=== PATIENT | female | born 1975 | race African-American/Black ===

== ENCOUNTER 2019-05-24 19:34 | Emergency (ER) | payer MEDICAID, OTHER ==
[~2019-05-24] VITALS: Ht 167.6 cm; Wt 74.6 kg
[2019-05-24 19:42] VITALS: BP 131/91
[2019-05-24] MEDS ORDERED: KETOROLAC 30 MG/1 ML IM ONE (20:30)
[2019-05-24] MEDS ORDERED: KETOROLAC 30 MG/1 ML ONE (20:31)
== END 2019-05-24 21:55 | disposition home or self-care (01) ==
LOC: ED 21:30
DX: S39.012A Strain of muscle, fascia and tendon of lower back, initial encounter (principal); S20.219A Contusion of unspecified front wall of thorax, initial encounter; S60.221A Contusion of right hand, initial encounter; V49.49XA Driver injured in collision with other motor vehicles in traffic accident, initial encounter; Y93.89 Activity, other specified; Y92.89 Other specified places as the place of occurrence of the external cause; Y99.8 Other external cause status
CPT/HCPCS: 71046; 72110; 72125; 73130; 96372; 99284; J1885

== ENCOUNTER 2020-09-24 16:36 | Emergency (ER) | payer MEDICAID, OTHER ==
[~2020-09-24] VITALS: Ht 167.6 cm; Wt 77.2 kg
--- NOTE | 2020-09-24 19:44 | NUR ---
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
[2020-09-24 20:04] LABS: BASOPHILS % (AUTO) 0 % (0-1); EOSINOPHILS % (AUTO) 2 % (1-7); LYMPHOCYTES % (AUTO) 23 % (22-44); MEAN CORPUSCULAR HEMOGLOBIN 32.9 pg (27.0-34.8); MEAN CORPUSCULAR HGB CONC 34.2 g/dL (32.4-35.8); MEAN PLATELET VOLUME 8.6 fL (7.4-10.4); MONOCYTES % (AUTO) 6 % (2-9); NEUTROPHILS % (AUTO) 68 % (42-75); PLATELET COUNT 214 x10^3/uL (130-400); RED BLOOD COUNT 4.14 x10^6/uL (3.82-5.3); RED CELL DISTRIBUTION WIDTH 13.7 % (9.6-15.2)
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
[2020-09-24 20:15] LABS: ANION GAP 3 mmol/L (5-15); CALCIUM 8.3 mg/dL (8.5-10.1); CHLORIDE 109 mmol/L (98-107); CREATININE 0.92 mg/dL (0.55-1.02)
[2020-09-24] MEDS ORDERED: KETOROLAC 30 MG/1 ML IM ONE (20:30)
[2020-09-24] MEDS ORDERED: KETOROLAC 30 MG/1 ML ONE (21:00)
[2020-09-24 21:04] VITALS: BP 156/93
[2020-09-24] MEDS ORDERED: CEPHALEXIN 500 MG CAPSULE ONE ×2 (21:06)
[2020-09-24] MEDS ORDERED: SULFAMETH./TRIMETHOPRIM DS 800MG/160MG TABLET ONE (21:06)
[2020-09-24] MEDS ORDERED: CEPHALEXIN 500 MG CAPSULE PO ONE (21:30)
[2020-09-24] MEDS ORDERED: SULFAMETH./TRIMETHOPRIM DS 800MG/160MG TABLET PO ONE (21:30)
== END 2020-09-24 21:19 | disposition home or self-care (01) ==
LOC: ED 21:10
DX: L03.114 Cellulitis of left upper limb (principal)
CPT/HCPCS: 36415; 80048; 85025; 93971; 96372; 99284; J1885